=== PATIENT | male | born 1930 | race Caucasian/White ===

== ENCOUNTER 2020-09-26 17:00 | Emergency (ER) | payer MEDICARE | END 2020-09-26 18:32 | disposition home or self-care (01) | LOC: EDH 17:00 | DX: S42.022A Displaced fracture of shaft of left clavicle, initial encounter for closed fracture (principal); I10 Essential (primary) hypertension; W06.XXXA Fall from bed, initial encounter; Y93.89 Activity, other specified; Y92.89 Other specified places as the place of occurrence of the external cause; Y99.8 Other external cause status | CPT/HCPCS: 73030 ==